=== PATIENT | male | born 1950 | race Caucasian/White ===

== ENCOUNTER 2025-03-19 09:56 | Outpatient (CLI) | payer MEDICARE, MEDICAID ==
[2025-03-19] MEDS ORDERED: LISI40TA20 PO (10:15)
[2025-03-19] MEDS ORDERED: APIX5TAB3 PO (10:15)
[2025-03-19] MEDS ORDERED: ALB0.5UD IH (10:15)
[2025-03-19] MEDS ORDERED: SPIR25TA PO (10:15)
[2025-03-19] MEDS ORDERED: FAMO20TA8 PO (10:15)
[2025-03-19] MEDS ORDERED: BUDE10.7 PO (10:15)
[2025-03-19] MEDS ORDERED: DILT240C94 PO (10:15)
[2025-03-19] MEDS ORDERED: ALBU8HFA INH (10:15)
[2025-03-19] MEDS ORDERED: ATOR-411 PO (10:15)
[2025-03-19 11:24] LABS: CHOL/HDL RATIO 4.1 (0.00-4.99); LDL CHOLESTEROL 123 MG/DL (50-100)
[2025-03-21 05:19] LABS: HEPATITIS C VIRUS ANTIBODY Non Reactive (Non Reactive)
== END 2025-03-19 23:59 | disposition home or self-care (01) ==
LOC: RAD 09:56
PROVIDERS: ATTEND Nurse Practitioner Family
DX: Z79.899 Other long term (current) drug therapy (principal)
CPT/HCPCS: 36415; 80061; 83036; 84439; 84443; 86803; 87522

== ENCOUNTER 2025-03-25 08:31 | Day surgery (SDC) | payer MEDICARE, MEDICAID ==
[2025-03-19 10:41] LABS: MEAN PLATELET VOLUME 8.7 FL (7.4-10.4); PRE OP WHITE BLOOD COUNT 7.6 10'3 (4.8-10.8)
[2025-03-19 10:42] LABS: PRE OP HEMATOCRIT 39.0 % (42.0-52.0); PRE OP HEMOGLOBIN 13.2 g/dL (14.0-17.9); PRE OP PLATELET COUNT 334 X10'3 (140-440); RED CELL DISTRIBUTION WIDTH 14.4 % (11.5-14.5)
[2025-03-19 10:56] LABS: CREATININE 0.91 MG/DL (0.60-1.10); PRE OP ALT 12 U/L (30-65); PRE OP ANION GAP 10 (8-16); PRE OP AST 17 U/L (10-37); PRE OP BILIRUB, TOTAL 0.2 MG/DL (0.0-1.0); PRE OP GLUCOSE 78 MG/DL (70-104); PRE OP POTASSIUM 3.9 MMOL/L (3.4-5.1); PRE OP SODIUM 142 MMOL/L (135-145); TOTAL CARBON DIOXIDE 26.0 MMOL/L (24-32); eGFR 81 ML/MIN
[2025-03-25] VITALS (18 sets, daily range): BP systolic 101–157; BP diastolic 56–79; PULSE 68–86; RESP 11–25; TEMP 98.4; O2SAT 92–100
[~2025-03-25] VITALS: Ht 182.9 cm; Wt 60.1 kg
[~2025-03-25 08:31] MED LIST: ALB0.5UD IH; ALBU8HFA INH; APIX5TAB3 PO; ATOR-411 PO; BUDE10.7 PO; BUPIVAcaine/PF 2.5mg/ml (0.25%) 10ml vial ONE; DILT240C94 PO; FAMO20TA8 PO; LIDOcaine 1% 30ml preserv. free vial ONE; LISI40TA20 PO; SPIR25TA PO; albuterol 2.5 MG/3 ML nebule NEB ONE
[2025-03-25] MEDS: ringers solution, lacted 1,000 ML IV SCH (09:19)
[2025-03-25] MEDS: ceFAZolin 2gm/dext,iso 50mL 50 ML IV ONE (09:19)
[2025-03-25] MEDS ORDERED: fentaNYL/PF 50MCG/1 ML 2ML syringe ONE (10:50)
[2025-03-25] MEDS ORDERED: LIDOcaine 2% (20mg/ml) 5ml vial ONE (10:51)
[2025-03-25] MEDS ORDERED: midazolam 1 mg/ML 2ml injection ONE (10:51)
[2025-03-25] MEDS ORDERED: propofol inj 20 ML IV ONE (10:51)
[2025-03-25] MEDS ORDERED: dexamethasone sod phosphate 4mg/ml inj. ONE (10:52)
[2025-03-25] MEDS ORDERED: ondansetron/PF 4mg/2ml inj ONE (10:52)
[2025-03-25] MEDS ORDERED: acetaminophen 1,000mg/100ml IV 100 ML IV ONE (10:52)
--- NOTE | 2025-03-25 10:53 | HISTORY AND PHYSICAL ---
History & Physical Providers to CC CC: RONNIE RIVERA MD ~ History of Present Illness Reason for Admit\Complaint: Bilateral inguinal hernias History of Present Illness 75-year-old gentleman who was seen in my office little over a month ago and diagnosed with a giant bilateral inguinal hernias He has had these for many years and they are now in the bilateral sides of his scrotum He is here today for elective repair He denies any change in his past medical history since he was seen in the office (please see previous history and physical exam is for all pertinent details) He stopped taking his Eliquis couple of days ago He is scheduled for robotic assisted, laparoscopic bilateral inguinal hernia repairs with mesh I anticipate this will take longer than usual given the giant sized hernias Allergies: Coded Allergies: No Known Allergies (Unverified , 03/24/25) Home Medications Home Medications Active Reported Aldactone (Spironolactone) 25 Mg Tablet 1 Tab PO DAILY Lisinopril* (Lisinopril) 40 Mg Tablet 1 Tab PO DAILY Lipitor (Atorvastatin Calcium) 40 Mg Tablet 1 Tab PO HS Famotidine 20 Mg Tablet 1 Tab PO BID Diltiazem 24HR Cd (Diltiazem Hcl) 240 Mg Cap.er.24h 240 Mg PO DAILY Eliquis (Apixaban) 5 Mg Tablet 5 Mg PO DAILY Pro-Air Inhaler (Albuterol) 8.5 Gm Inhaler 2 Puffs INH Q4HPRN PRN Proventil Nebs* (Albuterol) 2.5 Mg/0.5 Ml Vial.neb 2.5 Mg IH Q6H PRN Breztri Aerosphere Inhaler (Budesonide/Glycopyr/Formoterol) 160 Mcg-9 Mcg-4.8 Mcg/Actuation Hfa.aer.ad 2 Puffs PO Q6H PRN Exam Vitals: Vital Signs Date Time Temp Pulse Resp B/P (MAP) Pulse Ox O2 Delivery O2 Flow Rate FiO2 03/25/25 10:00 16 98 Room Air 0.0 03/25/25 09:58 68 03/25/25 09:57 98.4 157/79 (105) General: 75-year-old gentleman in no acute distress Chest: Coarse breath sounds bilaterally with prolonged expiratory phase Cardiovascular: Irregularly irregular rate and rhythm without murmur Abdomen: Soft and nondistended Very large bilateral inguinal-scrotal hernias Problems: (1) Bilateral inguinal hernia Assessment & Plan: The risks, benefits, and alternatives to a robotic assisted, laparoscopic bilateral inguinal hernia repair with mesh were discussed with the patient. Risks include, but are not limited to, bleeding, infection, injury to intra-abdominal structures, hernia recurrence and chronic postoperative pain. Given the very large size and the patient's age, we will put a catheter in his urinary bladder and he will be discharged home with this to be removed at home on (two days from now) Patient and family verbalized understanding and we will proceed with surgery as scheduled today. RONNIE RIVERA MD Mar 25, 2025 10:53
[2025-03-25] MEDS ORDERED: rocuronium 10mg/ml inj IV ONE (11:09)
[2025-03-25] MEDS ORDERED: labetalol 20mg/4ml (5mg/ml) syringe IV ONE ×2 (11:21→11:31)
[2025-03-25] MEDS: BUPIVAcaine/PF 2.5mg/ml (0.25%) 10ml vial IJ ONE (12:50)
[2025-03-25] MEDS: LIDOcaine 1% 30ml preserv. free vial IJ ONE (12:50)
--- NOTE | 2025-03-25 13:03 | OPERATIVE REPORT ---
Operative Report Providers to CC: ONESIMO RIVERA MD ~ Date of Procedure: Mar 25, 2025 Pre-Operative Diagnosis: Bilateral inguinal hernia Post-Operative Diagnosis SAME as PRE-Op Procedure Performed Robotic assisted, laparoscopic bilateral inguinal hernia repair with mesh Surgeon: Onesimo Rivera MD FACS Ob/Gyn Physician None Anesthesiologist: Kareem Miller Type of Anesthesia: General Findings: Giant bilateral inguinal-scrotal hernias Wound class I Complications None Prosthetics\Implants used: Bilateral large Dextile mesh Estimated Blood Loss: Minimal Specimen Removed: None Description of Procedure: Patient was brought to the operating room and identified by the nursing staff and the attending physician. Patient was placed supine and general anesthesia was induced. The patient's abdomen was prepped and draped in the standard sterile fashion. Preoperative antibiotics were given. Supraumbilical, midline incision was made to accommodate a 12 mm Moffett port. Moffett technique was used to gain access into the abdomen and the port was anchored to the fascia with 0 Vicryl suture. Abdomen was insufflated without incident. Laparoscope was inserted and the pelvis examined. Patient was placed in Trendelenburg position. The bilateral pelvis revealed very large inguinal hernia defects. On the left, there was a loop of sigmoid colon that was herniated and incarcerated and on the right, there was terminal ileum and cecum that were within the hernia sac that reduced with external compression. Left side was a very large indirect, and the right side was so big it looked as if both indirect and indirect head combined into one giant defect. Secondary, 8.5 mm robotic trochars were then placed in the right lateral left lateral upper abdomen just above the umbilical line. These were placed under laparoscopic guidance. Local anesthetic was infiltrated prior to their insertion. The da Christopher robotic arm was docked to the patient. Instruments were guided intra-abdominally under laparoscopic visualization. Peritoneal rent was created starting at the left anterior superior iliac spine and carried across the anterior abdominal wall to the contralateral anterior superior iliac spine. The peritoneal flap was created and carried down to the symphysis pubis. Dissection was carried out bilaterally. On the left, the incarcerated loop of sigmoid colon reduced with reduction of the hernia sac which was mobilized out of the left inguinal canal. On the right, the entire hernia sac was completely reduced. Peritoneum was dissected away from the cord structures and out laterally to accommodate 2 separate pieces of large Dextile mesh. Bilateral critical views of the myopectineal orifice were obtained. Mesh and suture was passed into the abdomen. The defect on the right was reapproximated with long absorbing V lock suture approximating the oblique muscles to the inguinal ligament up to the level of the iliac vessels and spermatic cord. Bilateral mesh was placed covering potential obturator, femoral, direct, and indirect hernia spaces. Mesh was anchored at Kennedy's ligament, rectus muscle in the midline, and out laterally just anterior to the anterior superior iliac spine. Mesh laid without wrinkles or folds. Peritoneal rent was then reapproximated with running, absorbable 2/0 V-lock suture. [place] were retrieved. Abdomen was allowed to desufflate after instruments removed and da Christopher robotic arm undocked from the patient. Umbilical port was removed as were the secondary trochars. The fascia at the umbilical port site was closed with 0 Vicryl sutures. Skin was closed at all sites with 4-0 Monocryl sutures in a subcuticular fashion. Sterile dressings were applied. Patient was awakened and taken to the postanesthesia care unit in stable condition. Counts repoted as correct: Yes ONESIMO RIVERA MD Mar 25, 2025 13:03
[2025-03-25] MEDS ORDERED: hydrALAZINE 20mg/ml inj. IV PRN (13:45)
[2025-03-25] MEDS ORDERED: labetalol 20mg/4ml (5mg/ml) syringe IV PRN (13:45)
[2025-03-25] MEDS ORDERED: ondansetron/PF 4mg/2ml inj IV PRN (13:45)
[2025-03-25] MEDS ORDERED: ringers solution, lacted 1,000 ML IV SCH (13:45)
[2025-03-25] MEDS: morphine 4 MG/ML inj SYRINge IV PRN (14:00)
[2025-03-25] MEDS: fentaNYL/PF 50MCG/1 ML 2ML syringe IV PRN ×2 (14:17)
[2025-03-25] MEDS: HYDROcodone/acetaminophen 5mg/325mg tablet PO PRN (15:00)
== END 2025-03-25 15:17 | disposition home or self-care (01) ==
LOC: PAS 08:31
PROVIDERS: ATTEND Surgery
DX: K40.30 Unilateral inguinal hernia, with obstruction, without gangrene, not specified as recurrent (principal); K40.90 Unilateral inguinal hernia, without obstruction or gangrene, not specified as recurrent; J43.9 Emphysema, unspecified; K21.9 Gastro-esophageal reflux disease without esophagitis; E78.5 Hyperlipidemia, unspecified; Z86.73 Personal history of transient ischemic attack (TIA), and cerebral infarction without residual deficits; Z79.01 Long term (current) use of anticoagulants; Z79.899 Other long term (current) drug therapy; Z98.41 Cataract extraction status, right eye; Z98.42 Cataract extraction status, left eye
CPT/HCPCS: 36415; 49650; 80053; 82948; 85025; A4215; A4618; C1758; C1781; J0131; J1100; J2003; J2250; J2270; J2405; J2704; J3010; J3490; J7030; J7120; S2900; Z7506; Z7508; Z7512; Z7610